=== PATIENT | male | born 1965 | race African-American/Black ===

== ENCOUNTER 2025-11-16 13:16 | Emergency (ER) | payer MEDICAID ==
[~2025-11-16] VITALS: Ht 182.9 cm; Wt 77.0 kg
[2025-11-16 13:22] VITALS: O2SAT 98
[2025-11-16 14:39] LABS: BASOPHILS % 0.5 % (0.0-2.0); EOSINOPHILS % 1.1 % (0.0-5.0); HEMATOCRIT. 43.6 % (42.0-52.0); HEMOGLOBIN. 14.5 g/dL (14.0-18.0); LYMPHOCYTES % 17.1 % (20.0-50.0); MEAN PLATELET VOLUME 7.5 fl (7.4-10.4); MONOCYTES % 5.9 % (2.0-8.0); NEUTROPHILS % 75.4 % (40.0-76.0); PLATELET 353 x1000/uL (130-400); RED BLOOD CELL COUNT 4.87 mill/uL (4.7-6.1); RED CELL DISTRIBUTION WIDTH 14.5 % (11.6-14.6)
[2025-11-16 14:56] LABS: CREATININE 1.0 mg/dL (0.6-1.3); UREA NITROGEN BLOOD 9 mg/dL (9-23)
[2025-11-16] MEDS: SODIUM CHLORIDE 0.9% 1,000 ML IV ONE (15:36)
[2025-11-16] MEDS: KETOROLAC 15MG/ML VIAL IV ONE (15:36)
[2025-11-16] MEDS ORDERED: AMOX1TAB16 MT (20:07)
[2025-11-16] MEDS ORDERED: NAPR-681 MT (20:07)
[2025-11-16 20:30] VITALS: BP 140/83; PULSE 70; RESP 16; TEMP 36.7; O2SAT 96
[2025-11-16] MEDS: AMOXICILLIN/POTASSIUM CLAVULANATE 875/125MG TAB PO ONE (20:41)
[2025-11-16] MEDS ORDERED: IOHEXOL-300 100 ML BOTTLE ONE (23:09)
== END 2025-11-16 20:56 | disposition home or self-care (01) ==
LOC: ER 13:16
DX: K11.5 Sialolithiasis (principal); K11.1 Hypertrophy of salivary gland; I10 Essential (primary) hypertension; E78.00 Pure hypercholesterolemia, unspecified
CPT/HCPCS: 80048; 85025; 36415; 70491; 96361; 96374; 99285; Q9967; J1885; J7030; Z7610